=== PATIENT | female | born 1960 | race Hispanic/Latino ===

== ENCOUNTER 2018-07-31 18:34 | Emergency (ER) | payer MEDICAID, OTHER | END 2018-07-31 20:12 | disposition home or self-care (01) | LOC: EDH 18:34 | DX: H10.023 Other mucopurulent conjunctivitis, bilateral (principal); I48.91 Unspecified atrial fibrillation ==

== ENCOUNTER 2018-08-03 16:14 | Emergency (ER) | payer MEDICAID | END 2018-08-03 17:17 | disposition home or self-care (01) | LOC: EDH 16:14 | DX: H10.401 Unspecified chronic conjunctivitis, right eye (principal); I48.91 Unspecified atrial fibrillation; Z98.890 Other specified postprocedural states | CPT/HCPCS: 99282 ==